=== PATIENT | female | born 1965 | race Caucasian/White ===

== ENCOUNTER 2018-06-24 15:09 | Emergency (ER) | payer MEDICAID ==
[~2018-06-24] VITALS: Ht 165.1 cm; Wt 77.1 kg
[2018-06-24 15:25] VITALS: BP_SYST 156
--- NOTE | 2018-06-24 15:25 | NUR ---
Patient ambulated into ER with FWW. Pt had a fall, secondary to unsteady gait with 0.5cm lac to forehead. Caregiver at bedside denies KO. Pt is poorly verbal which is baseline. Patient to ER bed 8 to gown for evaluation. Side rails up. Report given to Anton STANLEY.
--- NOTE | 2018-06-24 15:30 | NUR ---
ER at bedside examining patient.
--- NOTE | 2018-06-24 15:35 | NUR ---
Patient to ER from triage for evaluation of small laceration to head s/p non-syncopal trip and fall while using her walker. Patient is awake, alert and at her baseline per staff at her facility. NO LOC, or neck/back pain reported. Patient ambulates with walker, vital signs stable, respirations even and unlabored, skin warm and dry to touch. Staff from facility at bedside. Patient has been seen and evaluated by Dr Luo, will continue to observe and assess.
--- NOTE | 2018-06-24 15:40 | NUR ---
Dr Luo at bedside for wound repair using tissue adhesive. Wound cleansed with NS, prior to repair. Patient tolerating well.
[2018-06-24 15:49] VITALS: BP_SYST 150
--- NOTE | 2018-06-24 15:50 | NUR ---
Patient given written and verbal discharge instructions and verbalizes understanding. ER MD discussed with patient the results and treatment provided. Patient in stable condition. ID arm band removed. No RX given. Patient educated on pain management and to follow up with PMD. Pain Scale 0. Opportunity for questions provided and answered. Patient left ER in no acute distress using walker, staff from facility at her side. No active bleeding noted, patient tolerated wound closure.
== END 2018-06-24 15:50 | disposition home or self-care (01) ==
LOC: SED 15:09
DX: S01.112A Laceration without foreign body of left eyelid and periocular area, initial encounter (principal); R03.0 Elevated blood-pressure reading, without diagnosis of hypertension; W22.03XA Walked into furniture, initial encounter; Y93.89 Activity, other specified; Y92.89 Other specified places as the place of occurrence of the external cause; Y99.8 Other external cause status
CPT/HCPCS: 99283